=== PATIENT | female | born 1990 | race Two or more races ===

== ENCOUNTER 2017-10-05 20:49 | Observation (INO) | payer SELFPAY ==
[2017-10-05] MEDS: IV RINGERS,LACTATED 1000ML 1,000 ML IV (21:10)
[2017-10-05 21:12] LABS: BILIRUBIN,URINE NEGATIVE (NEG); CLARITY,URINE CLEAR; COLOR,URINE YELLOW; GLUCOSE,URINE 100 mg/dL (NEG); NITRITE,URINE NEGATIVE (NEG); PROTEIN,URINE NEGATIVE (NEG-TRACE)
[2017-10-05 21:20] LABS: BACTERIA,URINE FEW /HPF (0-FEW); SQUAMOUS EPITHELIAL CELL,UR OCC /LPF
[2017-10-05 21:22] LABS: BARBITURATES NEG (NEG); BENZODIAZEPINES NEG (NEG); CANNABINOIDS NEG (NEG); COCAINE NEG (NEG); METHADONE NEG (NEG); OPIATES NEG (NEG); PHENCYCLIDINE NEG (NEG)
[2017-10-05 21:26] LABS: AMPHETAMINE/METHAMPHETAMINE NEG (NEG); ETHANOL, URINE NEG (NEG)
[2017-10-05 21:40] LABS: POC GLUCOSE 86 mg/dL (70-99)
== END 2017-10-05 22:30 | disposition home or self-care (01) ==
LOC: 3 SO LND 20:49
DX: O26.893 Other specified pregnancy related conditions, third trimester (principal); R42 Dizziness and giddiness; Z3A.31 31 weeks gestation of pregnancy
CPT/HCPCS: 80307; 81001; 82962; 96360; G0378; G0379; J7120